=== PATIENT | female | born 1955 | race Caucasian/White ===

== ENCOUNTER 2019-05-19 08:13 | Day surgery (SDC) | payer BC, SELFPAY ==
--- NOTE | 2019-05-19 06:38 | W.COLOREPORT ---
Date of service: 05/19/19 Time of Service: :41 Colonoscopy Report Date of procedure: 05/19/19 Pre-op diagnosis general: colo cancer screening Post-op diagnosis procedure note: other (diverticulosis and polyp) Procedure: Colonoscopy with polypectomy Surgeon: Inna Jimenes Anesthesia proc note operative: other (General/ ASA 2/Steffen Gtz CRNA) Estimated blood loss (mL): 3 Pathology: other (ascending colon polyp) Complications: None Disposition: same day Indications: Mrs. Nunez is a pleasant 63 year old female seen in the office for her first colonoscopy. Risks, benefits and complications have been reviewed. Complications include but are not limited to bleeding, pain, perforation, missed small lesion/polyp, sore throat, aspiration and adverse reaction to the medications. Questions were entertained and answered to their satisfaction and they wished to proceed. No guarantees were given or implied. Prep: Miralax/Dulcolax Procedure Start Time: :41 Procedure End Time: 10:05 Retraction Time: 24 minutes Findings: Moderate diverticulosis of the descending and sigmoid colon 1 small polyp Procedure Description: After informed consent was obtained the patient was taken to the procedure room and placed in a left decubitous position. Monitors were applied and a time out was done. The patients name, date of , procedure, allergies to medications and metal in their body was reviewed. The patient was then sedated. Once sedated and comfortable a rectal exam was done. External exam was normal. Internal exam revealed a normal sphincter tone and no palpable masses. The scope was then introduced and retro-flexed. No internal hemorrhoids, masses or polyps were identified. The scope was then advanced to the cecum without difficulty. The TI and appendiceal orifice were identified. The prep was adequate. The scope was then slowly retracted over 24 minutes back into the rectum. One Polyp was removed with cold forceps in the ascending colon. Moderate Diverticulosis of the descending and sigmoid colon were identified. The scope was removed and the patient was woken up and taken back to Same day surgery in stable condition. The patient tolerated the procedure well and there were no immediate complications. Follow up: The patient should follow up in 3-5 years unless they develop changes in bowel habits or other new gastrointestinal complaints.
--- NOTE | 2019-05-19 06:39 | W.PM.DSUDISC ---
Discharge Plan Disposition Patient Disposition: HOME Condition: Good Discharge Details Reason For Visit: Colon Cancer Screening Attending Provider: Inna Jimenes Primary Care Provider: Camacho Burch Home Meds and New Rx's Prescriptions: Continued Complete Multivitamin Tablet 1 tab PO DAILY RF: 0 vitamin B complex [B Complex-Vitamin B12] Tablet 1 tab PO DAILY RF: 0 cholecalciferol (vitamin D3) 1,000 unit capsule 1,000 unit PO DAILY RF: 0 lisinopril 20 mg tablet 20 mg PO DAILY RF: 0 Discontinued polyethylene glycol 3350 17 gram/dose powder 238 g PO ONCE Qty: 238 RF: 0 bisacodyl [Dulcolax (bisacodyl)] 5 mg tablet,delayed release (DR/EC) 5 mg PO ONCE Qty: 4 RF: 0 Discharge Instructions Instructions: Colonoscopy (DC), Diverticulosis (DC), Colorectal Polyps (DC) Additional Instructions: Findings: 1 small polyp Diverticulosis Follow up: 3-5 years Please call if you develop: fevers >101.5 Nausea or Vomiting Abdominal pain that is not transient DAY SURGERY UNIT POST ENDOSCOPY INSTRUCTIONS 1. Because there will be medication in your system for the next 24 hours, you may feel a little sleepy. Your coordination will be affected. Therefore: a. Do not drive or operate dangerous equipment for 24 hours. b. Do not drink alcohol beverages for 24 hours (not even beer). c. Plan to go home and rest for the day. 2. Generally there are no restrictions on your activity after a day or so has gone by, but you may feel a bit fatigued for a few days. 3 After you arrive home you may have a light meal and return to a normal diet as you can tolerate it without feeling sick to your stomach. 4. After surgery, you may feel pain or discomfort. This should be only transient, but if it persists please contact your doctor. 5. If there are any questions regarding the findings of your procedure, please feel free to contact your doctor. 6. If you are unable to contact your doctor with a problem, contact the hospital at [phone]. 7. Continue all your regular medications unless directed otherwise. I understand the above instructions and have no questions. Signature of Patient or Responsible Adult Escort Date/Time Name of Responsible Adult Escort Signature of Nurse Date/Time Activity:: Activity as Tolerated Diet:: High Fiber Diet Discharge Orders Discharge Orders: Discharge Order (Routine); Ordered 05/19/19 Ordered By: Inna Jimenes DS: Diagnosis Discharge Diagnosis (1) S/P colonoscopy: Status: Acute (2) Colorectal polyp detected on colonoscopy: Status: Acute (3) Diverticulosis large intestine w/o perforation or abscess w/o bleeding: Status: Acute
[2019-05-19 08:27] VITALS: BP 107/69; PULSE 72; RESP 18; TEMP 36.7; O2SAT 95
[2019-05-19] MEDS: Lactated Ringers 1,000 ML 80 ML IV (08:40)
--- NOTE | 2019-05-19 09:54 | BOWEL_PTH ---
PATIENT: LOREE LOPEZ LOC: [facility] U#:[id number] AGE/SX: 63/F ROOM: RE05/19/[address]: Inna Jimenes MD : [id number] BED: DIS: 05/19/2019 SPEC #: [id number] RECD: 05/19/19 11:22 STATUS: DYLON REQ #: [id number] RADHA: 05/19/19 09:[address]: Inna Jimenes DEPT: Surgical Specimen RECD BY: Nimco Fox ENTERED: 05/19/19 11:23 SP TYPE: Bowel OTHR DR: Camacho Burch Tissues: 1 - BIOPSY BOWEL Procedures: GROSS AND MICRO LEVEL 4 Comments: [id number]
[2019-05-19 10:40] VITALS: BP 99/56; PULSE 58; RESP 16; TEMP 36; O2SAT 95
== END 2019-05-19 11:10 | disposition home or self-care (01) ==
LOC: SUR 08:14
PROVIDERS: PCP Neuromusculoskeletal Medicine & OMM; Visit Provider Surgery
PROC: 0DJD8ZZ Inspection of Lower Intestinal Tract, Via Natural or Artificial Opening Endoscopic (ICD-10-PCS; CPT 45378; principal; 2019-05-19 09:30)
DX: Z12.11 Encounter for screening for malignant neoplasm of colon (principal); D12.2 Benign neoplasm of ascending colon; K57.30 Diverticulosis of large intestine without perforation or abscess without bleeding; I10 Essential (primary) hypertension
CPT/HCPCS: 45380; 88305